=== PATIENT | male | born 1960 | race Caucasian/White ===

== ENCOUNTER 2017-01-19 00:53 | Emergency (ER) | payer OTHER ==
[~2017-01-19] VITALS: Ht 167.6 cm; Wt 71.7 kg
[~2017-01-19 00:53] MED LIST: DIAZEPAM10 M1 PO; GLIPIZIDE-METF1 EAC2 PO; LISINOPRIL10 M1 PO; MORPHINE SULFAT15 M3 PO; OXYCODONE HCL15 M1 PO; ZOFRAN ODT4 M1 SL
[2017-01-19] MEDS ORDERED: SIMVASTATIN20 M2 PO (02:35)
--- NOTE | 2017-01-19 03:56 | ED GENERAL ADULT ---
History of Present Illness General Chief Complaint: General Adult Stated Complaint: MULTI COMP,WITHDRAWL PAIN MEDS,N/D NO FOOD Source: patient Exam Limitations: no limitations Vital Signs & Intake/Output Vital Signs & Intake/Output Vital Signs Date Time Temp Pulse Resp B/P B/P Pulse O2 O2 Flow FiO2 Mean Ox Delivery Rate 01/19 0404 99.0 86 18 138/65 97 Room Air 01/19 0231 Room Air 01/19 0107 99.2 101 22 137/62 98 Allergies Coded Allergies: NO KNOWN ALLERGIES (10/29/12) Reconcile Medications Diazepam 10 MG TABLET 1 TAB PO 4 TIMES/DAY PANIC ATTACKS (Reported) Diazepam 10 MG TABLET 1 TAB PO TIDPRN PRN CHRONIC PAIN, MUSCLE SPASM SIXTEEN...[id number] Glipizide/Metformin HCl (Glipizide-Metformin 5-500 MG) 5 MG-500 MG TABLET 1 TAB PO BID DIABETES (Reported) Lisinopril 10 MG TABLET 1 TAB PO DAILY KIDNEY (Reported) Oxycodone HCl 15 MG TABLET 1 TAB PO 4 TIMES/DAY PAIN (Reported) Oxycodone HCl/Acetaminophen (Percocet 5-325 MG Tablet) 5 MG-325 MG TABLET 1 TAB PO 4XDP PRN PAIN SIXTEEN...[id number] Simvastatin (Simvastatin*) 20 MG TABLET 1 TAB PO QPM CHOLESTEROL (Reported) Triage Note: PT TO TRIAGE C/O WITHDRAWALS FROM PERCOCET,OXYCODONE AND VALIUM. PT REPORTS MISSING HIS PAIN MANAGEMENT APPT ON SATURDAY. ALSO REPORTS "EVERYTHING I EAT RUNS RIGHT THROUGH ME." Triage Nurses Notes Reviewed? yes Onset: Abrupt Duration: day(s): Injury Environment: home Severity: mild, moderate Modifying Factors: Worsens With: other ("ran out of meds"). Associated Symptoms: "body aches" HPI: 56-year-old gentleman presents with body aches. He states that he is enrolled in a chronic pain program. He showed up 15 minutes late to his appointment. He was unable to get refills of his medications. He states that he is on 20 mg tablets 4 times a day of oxycodone as well as Valium for his chronic back pain. He states that he feels shaky all over with muscle aches. He has no fever chills. He does have loose stools. He has no chest pain or shortness of breath. He states, "I just need some medicine to tide me over until I have my appointment on ." Past History Travel History Traveled to [place] past 21 day No Medical History Any Pertinent Medical History? see below for history Cardiovascular: hypertension Musculoskeletal: chronic back pain Endocrine: diabetes Surgical History Surgical History: LUMBAR FUSION TONSILLECTOMY, Psychosocial History What is your primary language Albanian Tobacco Use: Quit >30 days ago ETOH Use: denies use Family History Hx Contributory? No Review of Systems Review of Systems Constitutional: Reports: no symptoms. EENTM: Reports: no symptoms. Respiratory: Reports: no symptoms. Cardiovascular: Reports: no symptoms. GI: Reports: no symptoms. Genitourinary: Reports: no symptoms. Musculoskeletal: Reports: no symptoms. Skin: Reports: no symptoms. Neurological/Psychological: Reports: no symptoms. Hematologic/Endocrine: Reports: no symptoms. Immunologic/Allergic: Reports: no symptoms. All Other Systems: Reviewed and Negative Physical Exam Physical Exam General Appearance: well developed/nourished, mild distress, moderate distress Head: atraumatic, normal appearance Eyes: Bilateral: normal appearance. Ears, Nose, Throat: normal pharynx, normal ENT inspection Neck: normal inspection, supple, full range of motion Respiratory: normal breath sounds, chest non-tender, no respiratory distress, quiet respiration, lungs clear Cardiovascular: regular rate/rhythm Gastrointestinal: normal bowel sounds, soft, non-tender, no organomegaly Back: normal inspection, normal range of motion Extremities: normal inspection, normal capillary refill, normal range of motion, no edema Neurologic/Psych: no motor/sensory deficits, awake, alert, oriented x 3 Skin: intact, normal color, warm/dry Core Measures ACS in differential dx? No CVA/TIA Diagnosis: No Severe Sepsis Present: No Septic Shock Present: No Progress Differential Diagnoses I considered the following diagnoses in my evaluation of the patient: "Withdrawal benzo withdrawal versus other Plan of Care: Patient is otherwise stable with benign exam. I've given him a bridge prescription of Valium and Percocet until he can see his interventional pain physician on . Initial ED EKG: none Departure Departure Disposition: HOME OR SELF CARE Condition: Stable Clinical Impression Primary Impression: Chronic pain Secondary Impressions: Benzodiazepine withdrawal, Opioid withdrawal Referrals: Tien TILLMAN MD (PCP/Family) Departure Forms: Customer Survey General Discharge Information Prescriptions: Current Visit Scripts Oxycodone HCl/Acetaminophen (Percocet 5-325 MG Tablet) 1 TAB PO 4XDP PRN PAIN #16 TAB SIXTEEN...[id number] Diazepam 1 TAB PO TIDPRN PRN CHRONIC PAIN, MUSCLE SPASM #16 TAB SIXTEEN...[id number] Critical Care Note Critical Care Note Critical Care Time: non-applicable
[2017-01-19] MEDS ORDERED: PERCOCET 5-3251 EACH PO (03:57)
[2017-01-19] MEDS ORDERED: DIAZEPAM10 M1 PO (03:57)
[2017-01-19 04:04] VITALS: BP 138/65
== END 2017-01-19 04:05 ==
LOC: ERH 00:53
DX: G89.29 Other chronic pain (principal); F13.239 Sedative, hypnotic or anxiolytic dependence with withdrawal, unspecified; F11.23 Opioid dependence with withdrawal

== ENCOUNTER 2017-12-20 11:31 | Inpatient (IN) | payer OTHER ==
[~2017-12-20] VITALS: Ht 180.3 cm; Wt 86.2 kg
[~2017-12-20 11:31] MED LIST changes: +DIAZEPAM5 M1 PO; +PERCOCET 5-3251 EACH PO; +SIMVASTATIN20 M2 PO
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
[2017-12-20 12:02] LABS: ABSOLUTE BASOPHIL COUNT 0 /CUMM (0.0-0.2); ABSOLUTE EOSINOPHIL COUNT 0.1 /CUMM (0.0-0.7); ABSOLUTE GRANULOCYTE CT 5.5 /CUMM (1.4-6.5); ABSOLUTE LYMPH COUNT 1.5 /CUMM (1.2-3.4); ABSOLUTE MONOCYTE COUNT 0.5 /CUMM (0.10-0.60); BASOPHIL % 0.5 % (0.0-2.0); EOSINOPHIL % 0.7 % (0-5); GRANULOCYTE % 72.6 % (42.2-75.2); MEAN CORPUSCULAR HGB 27.9 PG (27.0-31.0); MEAN CORPUSCULAR HGB CONC 33.1 G/DL (33.0-37.0); MEAN CORPUSCULAR VOLUME 84.3 FL (80.0-94.0); MEAN PLATELET VOLUME 7.8 FL (7.4-10.4); PLATELET COUNT 364 /CUMM (130-400); RBC DISTRIBUTION WIDTH 14.5 % (11.5-14.5); RED BLOOD CELL CT 5.34 /CUMM (4.70-6.10); WHITE BLOOD CELL COUNT 7.6 /CUMM (4.8-10.8)
--- NOTE | 2017-12-20 13:57 | CT SCAN REPORT ---
EXAMINATION: CT HEAD WITHOUT CONTRAST CLINICAL INFORMATION: Frequent falls. Weakness. Failure to thrive. COMPARISON: 08/19/2017. TECHNIQUE: Contiguous axial imaging was performed from the skull base to vertex without intravenous administration of contrast. DLP: 620 mGy-cm FINDINGS: There is no evidence of acute intracranial hemorrhage or territorial infarction. No abnormal mass effect or midline shift is seen. Leigh to white matter differentiation is well preserved. No extra-axial fluid collections are identified. The ventricles are normal in size. There is no abnormal attenuation within the brain parenchyma. The osseous structures and soft tissues are normal. There are some aerosolized secretions with a fluid level in the left sphenoid air cell. The mastoid air cells and middle ear cavities are clear. IMPRESSION: No acute intracranial pathology. Stable small fluid level within the left sphenoid air cell.
[2017-12-20] MEDS ORDERED: ASPIRIN EC325 M2 PO (16:09)
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
[2017-12-21 16:20] VITALS: BP 154/72
[2017-12-21 22:30] VITALS: BP 158/78
[2017-12-22 06:08] VITALS: BP 160/72
--- NOTE | 2017-12-22 07:32 | PN- Housestaff ---
Yecenia Yin MD,[facility] 12/22/17 0732: Subjective Follow-up For: Chronic back pain Subjective: Patient visited today, was lying in bed comfortably in no acute distress, was alert and oriented. reported improved pain. No fever or chills, no shortness of breathing, no chest pain, no other events. Pending pysch consult. will be discharged to [facility] when stable. ambulation with walker Review of Systems Constitutional: Reports: see HPI. Objective Last 24 Hrs of Vital Signs/I&O Vital Signs Date Time Temp Pulse Resp B/P B/P Pulse O2 O2 Flow FiO2 Mean Ox Delivery Rate 12/22 0608 97.7 74 20 160/72 96 12/21 2230 97.9 96 18 158/78 97 Room Air 12/21 1620 97.6 76 16 154/72 97 Room Air Room Air 12/21 1505 99.7 97 22 157/89 97 Room Air Intake & Output 12/22 1600 12/22 0800 12/22 0000 Intake Total 240 480 Output Total 375 Balance -135 480 Intake, Oral 240 480 Output, Urine 375 Patient 190 lb 200 lb Weight Weight Bed scale Reported by Patient Measurement Method Physical Exam General Appearance: Alert, Oriented X3, Cooperative, No Acute Distress Sepsis Skin Exam (color): Normal for Ethnicity HEENT: Atraumatic, EOMI Cardiovascular: Normal S1, Normal S2 Lungs: Normal Air Movement Abdomen: Soft, No Tenderness Neurological: Strength at 5/5 X4 Ext Current Medications: Current Medications Sig/Lori Start time Last Medication Dose Route Stop Time Status Admin Glipizide 5 MG BID 12/20 2100 DC 12/21 PO 0846 Insulin Aspart 0 TIDAC 12/21 1700 AC 12/22 SC 1235 Lorazepam 1 MG ONE ONE 12/21 2044 DC 12/21 PO 12/21 Metformin HCl 500 MG 0800,1700 12/21 0800 DC 12/21 PO 0846 Oxycodone HCl 10 MG Q6 PRN 12/22 1015 AC 12/22 PO 1235 Oxycodone HCl 10 MG .STK-MED ONE 12/21 1848 DC PO 12/21 1849 Oxycodone HCl 10 MG Q6 PRN 12/21 1000 DC 12/21 PO 1850 Assessment/Plan Assessment: 57-year-old gentleman from home, past medical history significant for diabetes, anxiety, depression, chronic back pain, chronic opiate dependence admitted with generalized weakness, difficulty ambulating. Problem list Exz-[id number]-[id number] by Hypertension Diabetes Gait disturbance/deconditioning Chronic back pain Opiate dependence Plan Admit to general medicine floor, vitals per protocol Accu-Cheks, insulin sliding scale Will continue his home medication of oxycodone 10 mg every 6 for pain , consult pain management Patient is seen in 's office and apparently has a appointment with them next Saturday Psychiatry on board will follow pysch consult Diabetic diet PT to evaluate and treat, possible rehabilitation upon discharge DNR/DNI Problem List: 1. Chronic pain 2. Anxiety Pain Ratin Pain Location: back controlled Pain Goal: Pain 4 or less Pain Plan: continue current plan Tomorrow's Labs & Rationales: None Jaqui Mccurdy MD 12/22/17 1331: Attending MD Review Statement Attending Statement Attending MD Statement: examined this patient, discuss w/resident/PA/MANAGER OF SALES, agreed w/resident/PA/MANAGER OF SALES, discussed with family, reviewed EMR data (avail), discussed with nursing, reviewed images, amended to note Attending Assessment/Plan: Patient seen and examined, claims that he's not feeling too well today. He claims that his pain control is not adequate. He was also feeling very anxious. Vital Signs Date Time Temp Pulse Resp B/P B/P Pulse O2 O2 Flow FiO2 Mean Ox Delivery Rate 12/22 0608 97.7 74 20 160/72 96 12/21 2230 97.9 96 18 158/78 97 Room Air 12/21 1620 97.6 76 16 154/72 97 Room Air Room Air 12/21 1505 99.7 97 22 157/89 97 Room Air on exam; aox,3, nad. cv; s1, s2, rrr resp; clear abd; soft, nt, bs+ ext; no edema no labs. A/P; 57-year-old male with past medical history significant for diabetes, hypertension, anxiety, depression, chronic back pain, chronic opiate dependence admitted with generalized weakness, difficulty ambulating. Patient also with chronic pain, poor nutrition/malnourishment uncontrolled diabetes history of anxiety and panic attacks. Will make oxycodone scheduled. Patient claims that hydroxyzine helps with anxiety. We can start hydroxyzine as needed. Psych consult is pending. Blood sugars are running in acceptable range on sliding scale insulin. Please check HemoCue been A1c. Please start the patient on pharmacologic DVT prophylaxis and patient will be seen by physical therapy.
[2017-12-22 15:48] VITALS: BP 152/74
[2017-12-22 22:08] VITALS: BP 130/80
[2017-12-23 06:32] VITALS: BP 134/76
--- NOTE | 2017-12-23 08:14 | PN- Housestaff ---
Yecenia Yin MD,[facility] 12/23/17 0814: Subjective Follow-up For: Chronic back pain Deconditioning Subjective: Patient visited today, was lying in bed comfortably in no acute distress, was alert and oriented. Reported pain is under control with medication. No fever or chills, no shortness of breathing, no chest pain, no other events. PT recommended STR. pending placement for safe discharge. Review of Systems Constitutional: Reports: see HPI. Objective Last 24 Hrs of Vital Signs/I&O Vital Signs Date Time Temp Pulse Resp B/P B/P Pulse O2 O2 Flow FiO2 Mean Ox Delivery Rate 12/23 1202 Room Air 12/23 0632 98.0 70 18 134/76 97 12/22 2208 98.0 79 20 130/80 96 Room Air 12/22 1548 98.2 93 20 152/74 96 Room Air Intake & Output 12/23 1600 12/23 0800 12/23 0000 Intake Total 480 490 Output Total 300 375 Balance 180 115 Intake, IV 0 10 Intake, Oral 480 480 Number 0 0 Bowel Movements Output, Urine 300 375 Physical Exam General Appearance: Alert, Oriented X3, Cooperative, No Acute Distress Skin: No Significant Lesion, Tatoo Skin Temp/Moisture Exam: Warm/Dry Sepsis Skin Exam (color): Normal for Ethnicity HEENT: Atraumatic, EOMI Cardiovascular: Normal S1, Normal S2 Lungs: Normal Air Movement Abdomen: Soft, No Tenderness Neurological: Normal Speech, Strength at 5/5 X4 Ext, Ambulates with walker Extremities: No Edema Current Medications: Current Medications Sig/Lori Start time Last Medication Dose Route Stop Time Status Admin Enoxaparin Sodium 40 MG DAILY 12/22 1339 12/23 SC 0816 Hydroxyzine HCl 25 MG TID PRN 12/22 1345 AC 12/23 PO 1049 Insulin Aspart 0 TIDAC 12/21 1700 AC 12/23 SC 1216 Lorazepam 1 MG ONE ONE 12/22 1515 DC 12/22 PO 12/22 1516 1525 Oxycodone HCl 10 MG Q6 12/22 1800 AC 12/23 PO 1219 Oxycodone HCl 10 MG Q6 PRN 12/22 1015 DC 12/22 PO 12/22 1759 1235 Assessment/Plan Assessment: 57-year-old gentleman from home, past medical history significant for diabetes, anxiety, depression, chronic back pain, chronic opiate dependence admitted with generalized weakness, difficulty ambulating. Problem list NIDDM Hypertension Gait disturbance/deconditioning Chronic back pain Opiate dependence Plan Admit to general medicine floor, vitals per protocol Accu-Cheks, insulin sliding scale Will continue his home medication of oxycodone 10 mg every 6 for pain , consult pain management Patient is seen in 's office and apparently has a appointment with them next Saturday Psychiatry on board will follow pysch consult PT recommended STR Pending placement for safe discharge Diabetic diet DNR/DNI Problem List: 1. Chronic back pain 2. Weakness Pain Ratin (Controlled) Pain Location: back pain improved Pain Goal: Pain 4 or less Pain Plan: Continue current plan Tomorrow's Labs & Rationales: None Lulú Aburto MD 12/23/17 1448: Attending MD Review Statement Attending Statement Attending MD Statement: examined this patient, discuss w/resident/PA/AUTO CAMP ATTENDANT, agreed w/resident/PA/AUTO CAMP ATTENDANT, reviewed EMR data (avail), discussed with nursing, discussed with case mgmt, amended to note Attending Assessment/Plan: Patient seen and examined. Resting comfortably and not in acute distress. We had a detailed conversation this morning during rounds. Patient reports that primary reason for presented to the ER was worsening of his agitation and anxiety after being taken off Valium which she had been using for over 20 years. He reports that his pain management doctor placed him on medical marijuana instead. He reports that this new regimen has not been helping his anxiety. Since hospitalization he has been started on Atarax and he is very happy with the results. She would like to be discharged on this regimen. Regarding his unsteady gait patient reports chronic back issues going back several years. Has had 3 back surgeries and is not considered a candidate for further surgery according to the patient. He reports that the hardware in the back have failed and admits to challenges with ambulation. He states that these challenges have worsened in the past few weeks after discontinuation of his benzodiazepine therapy. He was evaluated by physical therapy service and cleared for discharge to nursing home facility for short-term rehabilitation in order to help return him to his baseline. Regards to pain he is satisfied with his current home regimen and is not looking for any additional pain medications. Once a bed can be secured at the nursing home facility he will be discharged.
--- NOTE | 2017-12-23 09:48 | Patient Discharge Instructions ---
See Addendum Discharge Instructions General Discharge Information You were seen/treated for: Weakness deconditioning Watch for these problems: Severe weakness, change in sensation, nausea, change in stool or urine control or worsening of any other symptoms Special Instructions: Please follow with your PCP within one week of discharge. Diet Continue normal diet: No Recommended Diet: Diabetic Activity Full Activity/No Limits: No Activity Self Limited: Yes Acute Coronary Syndrome Inclusion Criteria At DC or during hospital stay patient has or had the following: ACS DIAGNOSIS No Discharge Core Measures Meds if any: Prescribed or Continued at Discharge Meds if any: NOT Prescribed or Continued at Discharge Congestive Heart Failure Inclusion Criteria At DC or during hospital stay patient has or had the following: CHF DIAGNOSIS No Discharge Core Measures Meds if any: Prescribed or Continued at Discharge Meds if any: NOT Prescribed or Continued at Discharge Cerebrovascular accident Inclusion Criteria At DC or during hospital stay patient has or had the following: CVA/TIA Diagnosis No Discharge Core Measures Meds if any: Prescribed or Continued at Discharge Meds if any: NOT Prescribed or Continued at Discharge Venous thromboembolism Inclusion Criteria VTE Diagnosis No VTE Type NONE VTE Confirmed by (Test) NONE Discharge Core Measures - Per Current guidelines, there needs to be overlap - treatment for the first 5 days of Warfarin therapy. - If discharged on Warfarin prior to 5 days of - overlap therapy, the patient will need to be - assessed for post discharge needs including - *Post discharge parental anticoagulation - *Warfarin and/or parental anticoagulation education - *Follow up date to check INR post discharge At least 5 days overlap therapy as Inpatient No Meds if any: Prescribed or Continued at Discharge Note: Overlap Therapy is Warfarin and Anticoagulant Meds if any: NOT Prescribed or Continued at Discharge
[2017-12-23 14:31] VITALS: BP 142/72
[2017-12-23 22:36] VITALS: BP 133/81
[2017-12-24 07:03] VITALS: BP 132/76
--- NOTE | 2017-12-24 07:48 | PN- Housestaff ---
Yecenia Yin MD,[facility] 12/24/17 0748: Subjective Follow-up For: Chronic back pain Deconditioning Subjective: Patient visited today, was lying in bed comfortably in no acute distress, was alert and oriented. No fever or chills, no shortness of breathing, no chest pain, no other events. Contacted psych service, recommended to start on Ativan twice a day when necessary anxiety. Plan to discharge tomorrow Review of Systems Constitutional: Reports: see HPI. Objective Last 24 Hrs of Vital Signs/I&O Vital Signs Date Time Temp Pulse Resp B/P B/P Pulse O2 O2 Flow FiO2 Mean Ox Delivery Rate 12/24 1425 98.1 77 20 140/64 96 Room Air 12/24 1132 Room Air 12/24 0853 Room Air 12/24 0703 97.6 74 20 132/76 96 12/23 2236 98.2 70 20 133/81 97 Room Air Intake & Output 12/24 1600 12/24 0800 12/24 0000 Intake Total 620 Output Total 900 575 Balance 620 -900 -575 Intake, Oral 620 Number 0 Bowel Movements Output, Urine 900 575 Physical Exam General Appearance: Alert, Oriented X3, Cooperative, No Acute Distress Skin Temp/Moisture Exam: Warm/Dry Sepsis Skin Exam (color): Normal for Ethnicity HEENT: Atraumatic Cardiovascular: Normal S1, Normal S2 Lungs: Clear to Auscultation, Normal Air Movement Abdomen: Soft, No Tenderness Current Medications: Current Medications Sig/Lori Start time Last Medication Dose Route Stop Time Status Admin Enoxaparin Sodium 40 MG DAILY 12/22 1339 AC 12/24 SC 0750 Hydroxyzine HCl 25 MG TID PRN 12/22 1345 DC 12/24 PO 0951 Insulin Aspart 0 TIDAC 12/21 1700 AC 12/24 SC 1200 Lorazepam 0.5 MG BID PRN 12/24 1445 AC 12/24 PO 12/31 1444 1519 Melatonin 3 MG ONCE ONE 12/23 2345 DC 12/23 PO 12/23 2346 2352 Oxycodone HCl 10 MG Q6 12/22 1800 AC 12/24 PO 1200 Patient Medication 1 ED ONE ONE 12/23 1715 AL Teaching ED 12/23 1716 Assessment/Plan Assessment: 57-year-old gentleman from home, past medical history significant for diabetes, anxiety, depression, chronic back pain, chronic opiate dependence admitted with generalized weakness, difficulty ambulating. Problem list NIDDM Hypertension Gait disturbance/deconditioning Chronic back pain anxiety Opiate dependence Plan Admit to general medicine floor, vitals per protocol Accu-Cheks, insulin sliding scale Will continue his home medication of oxycodone 10 mg every 6 for pain , consult pain management Patient is seen in 's office and apparently has a appointment with them next Saturday Psychiatry on board - will follow up pysch consult - ativan BID PRN PT recommended STR Pending placement for safe discharge Diabetic diet DNR/DNI Problem List: 1. Chronic back pain 2. Weakness Pain Ratin Pain Location: None Pain Goal: Pain 4 or less Pain Plan: Continue curren tplan Tomorrow's Labs & Rationales: NONE Lulú Aburto MD 12/24/17 1225: Attending MD Review Statement Attending Statement Attending MD Statement: examined this patient, discuss w/resident/PA/CULTURIST, agreed w/resident/PA/CULTURIST, reviewed EMR data (avail), discussed with nursing, discussed with case mgmt, amended to note Attending Assessment/Plan: Patient seen and examined. Yesterday morning during rounds was very happy with using Atarax for his anxiety. He reported good symptom relief. He received the dose of Atarax yesterday. This morning however she awoke anxious and agitated. He reports that Atarax is no longer working. He is requesting a benzodiazepine for he is anxiety. It is noted that he had not received his morning dose of Atarax when we evaluated him as he was refusing this medication and requesting only benzodiazepine therapy. Reports that the sole reason for presentation to the hospital is his increased agitation. He is otherwise hemodynamically stable. He is able to mobilize forward with assistance. Case management is in the process of securing residential facility for short-term rehabilitation. In the meantime we have encouraged the patient to continue with Atarax while a consult has been placed with the psychiatry service to help manage his anxiety disorder. Patient is in agreement with this plan.
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
[2017-12-24 14:25] VITALS: BP 140/64
[2017-12-24 21:38] VITALS: BP 140/88
[2017-12-25 06:19] VITALS: BP 138/68
--- NOTE | 2017-12-25 07:06 | PN- Housestaff ---
Yecenia Yin MD,[facility] 12/25/17 0706: Subjective Follow-up For: Chronic back pain Deconditioning Subjective: Patient visited today, was lying in bed comfortably in no acute distress, was alert and oriented. reported good night sleep, got 1 dose of ativan No fever or chills, no shortness of breathing, no chest pain, no other events. Plan to discharge today to [facility]. Review of Systems Constitutional: Reports: see HPI. Objective Last 24 Hrs of Vital Signs/I&O Vital Signs Date Time Temp Pulse Resp B/P B/P Pulse O2 O2 Flow FiO2 Mean Ox Delivery Rate 12/25 06 98.3 74 20 138/68 96 Room Air 12/24 2138 98.0 78 18 140/88 97 Room Air 12/24 1425 98.1 77 20 140/64 96 Room Air 12/24 1132 Room Air 12/24 0853 Room Air Intake & Output 12/25 1600 12/25 0800 12/25 0000 Intake Total 240 240 Output Total 850 550 Balance -610 -310 Intake, Oral 240 240 Output, Urine 850 550 Physical Exam General Appearance: Alert, Oriented X3, Cooperative, No Acute Distress Skin: No Significant Lesion Skin Temp/Moisture Exam: Warm/Dry Sepsis Skin Exam (color): Normal for Ethnicity HEENT: Atraumatic Cardiovascular: Normal S1, Normal S2 Lungs: Clear to Auscultation, Normal Air Movement Abdomen: Soft, No Tenderness Current Medications: Current Medications Sig/Lori Start time Last Medication Dose Route Stop Time Status Admin Acetaminophen 325 MG ONCE ONE 12/25 1999 DC 12/24 PO 12/24 Enoxaparin Sodium 40 MG DAILY 12/22 1339 12/25 SD 0745 Hydroxyzine HCl 25 MG TID PRN 12/22 1345 DC 12/24 PO 0951 Insulin Aspart 0 TIDAC 12/21 1700 12/25 SD 0746 Lorazepam 0.5 MG BID PRN 12/24 1445 AC 12/25 PO 12/31 1444 0746 Oxycodone HCl 10 MG Q6 PRN 12/24 1958 12/25 PO 0658 Oxycodone HCl 10 MG Q6 12/22 1800 DC 12/24 PO 1200 Patient Medication 1 ED ONE ONE 12/24 1700 MS Teaching ED 12/24 1701 Assessment/Plan Assessment: 57-year-old gentleman from home, past medical history significant for diabetes, anxiety, depression, chronic back pain, chronic opiate dependence admitted with generalized weakness, difficulty ambulating. Problem list NIDDM Hypertension Gait disturbance/deconditioning Chronic back pain anxiety Opiate dependence Plan Admit to general medicine floor, vitals per protocol Accu-Cheks, insulin sliding scale Will continue his home medication of oxycodone 10 mg every 6 for pain , consult pain management Patient is seen in 's office and apparently has a appointment with them next Saturday Psychiatry on board - will follow up pysch consult - ativan BID PRN, plan to DC upon discharge - PT recommended STR - Pending placement for safe discharge - planned to discharge today Diabetic diet DNR/DNI Problem List: 1. Weakness 2. Chronic back pain Pain Ratin Pain Location: none Pain Goal: Pain 4 or less Pain Plan: continue current plan Tomorrow's Labs & Rationales: None Lamonte CUENCA,Lulú 12/25/17 1229: Attending MD Review Statement Attending Statement Attending MD Statement: examined this patient, discuss w/resident/PA/MARKET RESEARCH INTERVIEWER, agreed w/resident/PA/MARKET RESEARCH INTERVIEWER, reviewed EMR data (avail), discussed with nursing, discussed with case mgmt, amended to note Attending Assessment/Plan: Patient seen and examined. Resting comfortably and not in any acute distress. He feels much better after Ativan therapy was initiated yesterday as recommended by the psychiatry service. He is pleased with this regimen. He was seen formally by the psychiatry service today and further recommendations will be made for long-term management of his anxiety. Patient is in agreement with these recommendations. He currently has no new complaints and will be discharged as planned to a half-way facility to undergo short-term rehabilitation. Ongoing management for his anxiety disorder will be as recommended by the psychiatry service.
[2017-12-25] MEDS ORDERED: ATIVAN0.5 M1 PO ×2 (09:32→11:08)
[2017-12-25 09:43] VITALS: BP 138/68
[2017-12-25] MEDS ORDERED: MELATONIN3 M4 PO (11:08)
[2017-12-25] MEDS ORDERED: ZOLOFT25 M1 PO (11:08)
[2017-12-25] MEDS ORDERED: GABAPENTIN100 M2 PO (11:08)
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
== END 2017-12-25 15:15 | DRG 92 ==
LOC: ERH 11:31 → ERHI 15:26 → ENRESERV 17:33 → 2NB 12-21 12:04 → ENRESERV 12-21 14:52 → ENTRNSPT 12-21 15:59 → EDTRNSPTSTS 12-21 16:04 → 2NB 12-21 16:12 → CMPTRNSPT 12-21 16:14 → 2NB 12-21 16:15 → ENPENDDIS 12-25 09:56 → ENTRNSPT 12-25 14:44 → CMPTRNSPT 12-25 15:11 → 2NB 12-25 15:15
PROVIDERS: Physician Assistant Medical
DX: R26.81 Unsteadiness on feet (principal); F11.20 Opioid dependence, uncomplicated; E11.8 Type 2 diabetes mellitus with unspecified complications; E46 Unspecified protein-calorie malnutrition; M54.9 Dorsalgia, unspecified; F32.9 Major depressive disorder, single episode, unspecified; Z68.27 Body mass index [BMI] 27.0-27.9, adult; F41.9 Anxiety disorder, unspecified; I10 Essential (primary) hypertension; G89.29 Other chronic pain; Z91.81 History of falling; Z79.82 Long term (current) use of aspirin; Z79.891 Long term (current) use of opiate analgesic; Z91.048 Other nonmedicinal substance allergy status; R62.7 Adult failure to thrive; Z66 Do not resuscitate; Z81.8 Family history of other mental and behavioral disorders
CPT/HCPCS: 2NBSP; 6040; 80307; 81003; 93005; 93010; 96361; 96374; 97110-GO; 97116-GO; 97116-GP; 97161-GP; 97530-GO; 99233; G0378; G0463; G0480; G8978-GP; G8979-GP; J1650

== ENCOUNTER 2018-04-29 01:50 | Emergency (ER) | payer OTHER ==
[~2018-04-29] VITALS: Ht 180.3 cm; Wt 86.2 kg
[~2018-04-29 01:50] MED LIST changes: +ASPIRIN EC325 M2 PO; +ATIVAN0.5 M1 PO; +GABAPENTIN100 M2 PO; +MELATONIN3 M4 PO; +ZOLOFT25 M1 PO
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
[2018-04-29 02:55] LABS: ABSOLUTE BASOPHIL COUNT 0 /CUMM (0.0-0.2); ABSOLUTE EOSINOPHIL COUNT 0 /CUMM (0.0-0.7); ABSOLUTE LYMPH COUNT 1.4 /CUMM (1.2-3.4); ABSOLUTE MONOCYTE COUNT 0.6 /CUMM (0.10-0.60); BASOPHIL % 0.4 % (0.0-2.0); EOSINOPHIL % 0.5 % (0-5); GRANULOCYTE % 71.2 % (42.2-75.2); HEMATOCRIT 47.3 % (42-52); MEAN CORPUSCULAR HGB 27.9 PG (27.0-31.0); MEAN CORPUSCULAR HGB CONC 33.5 G/DL (33.0-37.0); MEAN CORPUSCULAR VOLUME 83.3 FL (80.0-94.0); MEAN PLATELET VOLUME 7.4 FL (7.4-10.4); PLATELET COUNT 420 /CUMM (130-400); RBC DISTRIBUTION WIDTH 13.6 % (11.5-14.5); RED BLOOD CELL CT 5.68 /CUMM (4.70-6.10); WHITE BLOOD CELL COUNT 7.1 /CUMM (4.8-10.8)
[2018-04-29 14:15] VITALS: BP 133/72
[2018-04-29] MEDS ORDERED: OXYCODONE HCL15 M1 PO (14:35)
[2018-04-29] MEDS ORDERED: ATIVAN0.5 M1 PO (14:35)
== END 2018-04-29 15:00 ==
LOC: ERH 01:50
PROVIDERS: Emergency Medicine
DX: R53.1 Weakness (principal); F11.20 Opioid dependence, uncomplicated; R26.2 Difficulty in walking, not elsewhere classified; R11.2 Nausea with vomiting, unspecified; R42 Dizziness and giddiness; G89.29 Other chronic pain; I10 Essential (primary) hypertension
CPT/HCPCS: 80307; 81001; 93005; 93010; 96361; 96374; J1885